=== PATIENT | male | born 1950 | race Caucasian/White ===

== ENCOUNTER 2017-12-24 10:54 | Outpatient (CLI) | payer MEDICARE, OTHER ==
[~2017-12-24] VITALS: Ht 182.9 cm; Wt 131.8 kg
--- NOTE | ~2017-12-24 | HEMODYNAMI ---
PATIENT:CHAS RICHARD MEDICAL RECORD: [id number] : 46 LOCATION:[facility]ARY ADMISSION DATE: 12/24/17 Generatedon:12/24/201713:21 Patient name: CHAS RICHARD Patient #: [id number] SSN: : 1950 Date of study: 12/24/2017 Page: Of Hemodynamic Procedure Report Patient Data Patient Demographics Procedure consent was obtained First Name: CHAS Gender: Male Last Name: JOSE MANUEL : 1950 Middle Initial: R Age: 67 year(s) Patient #: [id number] Race: Unknown Additional ID: [id number] Contact details Address: [place] [address] State: [place] City: [place] Zip code: [address] Admission Admission Data Admission Date: 12/24/2017 Admission Time: 10:54 Admit Source: Other Lab Results Lab Result Date: 12/24/2017 Lab Result Time: 11:33 Biochemistry Name Units Result Min Max BUN mg/dl 16 --(---*)-- 7 18 Creatinine mg/dl 1.3 --(---*)-- 0.6 1.3 CBC Name Units Result Min Max Hematocrit % 44.9 --(*---)-- 42 54 Hemoglobin g/dl 15.6 --(--*-)-- 13.5 17.5 Procedure Procedure Types Cath Procedure Diagnostic Procedure Cardioversion External Procedure Description Procedure Date Procedure Date: 12/24/2017 Procedure Start Time: 13:05 Procedure End Time: 13:20 Procedure Staff Name Function Thaddeus Warner MD Performing Physician Syed Watkins RT Monitor Sanya Carmichael RN Nurse Yue Rowell RT Monitor Jerry Estrella CRNA Additional personnel Procedure Data Procedure Complications No complications Procedure Medications Medication Administration Route Dosage Oxygen etCO2 Nasal cannula 6 l/min Refer to Anesthesia Notes for Sedation Medications Hemodynamics Rest Heart Rate: 99 (bpm) Snapshots Pre Cath Intra NCS Post Cath Vital Signs Time Heart Resp SPO2 etCO2 NIBP (mmHg) Rhythm Pain Sedation Rate (ipm) (%) (mmHg) Status Level (bpm) 12:58:09 100 16 95 0 146/90(115) NSR 0 (11) 10(A) , No pain 13:02:37 100 16 99 36.1 125/90(102) NSR 0 (11) 10(A) , No pain 13:06:57 98 17 99 39.8 128/96(111) NSR 0 (11) 9(A) , No pain 13:11:28 62 16 94 12.8 111/69(86) NSR 0 (11) 9(A) , No pain 13:16:27 62 14 95 40.6 Measuring NSR 0 (11) 9(A) , No pain 13:16:37 63 14 96 34.6 110/66(85) NSR 0 (11) 9(A) , No pain 13:20:04 62 16 96 35.4 110/69(88) NSR 0 (11) 9(A) , No pain Medications Time Medication Route Dose Verified Delivered Reason Notes Effective ness by by 13:00:54 Oxygen etCO2 6 Thaddeus Segundo Per Nasal l/min St Catrachito Carmichael RN physician cannula 13:01:21 Refer to Thaddeus Segundo Per Anesthesia St Catrachito Carmichael RN physician Notes for MD Sedation Medications Procedure Log Time Note 12:36:17 Informed consent obtained and on chart 12:36:54 Admit Source: Other 12:36:56 Diagnostic Cath status Elective 12:36:57 Time tracking: Regular hours 12:37:00 Plan of Care:Hemodynamics will remain stable., Cardiac rhythm will remain stable., Comfort level will be maintained., Respiratory function will remain adequate., Patient/ family verbilizes understanding of procedure., Procedure tolerated without complication., Recovers from procedure without complications.. 12:37:35 H&P Date Dictated: 12/22/2017 Within 30 days and on chart., H&P Addendum completed by physician on day of procedure. (MUST COMPLETE FOR ALL OUTPATIENTS). 12:39:28 Lab Result : BUN 16 mg/dl 12:39:28 Lab Result : Hemoglobin 15.6 g/dl 12:39:28 Lab Result : Creatinine 1.3 mg/dl 12:39:28 Lab Result : Hematocrit 44.9 % 12:40:57 Syed Watkins RT(R) sent for patient. Start room use. 12:55:55 Patient received from Pre/Post Procedure Room to CCL 3 Alert and oriented. Tansferred to table in Supine position. 12:55:56 Warm blankets applied, and yamel hugger turned on for patient comfort. 12:55:57 Correct patient and procedure confirmed by team. 12:55:57 ECG and BP/O2 sat monitors applied to patient. 12:55:59 Full Disclosure recording started 12:56:50 Vital chart was started 12:56:54 Rhythm: atrial fibrillation 12:56:58 Pre-procedure instructions explained to patient. 12:56:58 Pre-op teaching completed and patient verbalized understanding. 12:57:00 Family in patients room. 12:57:02 Patient NPO since Midnight. 12:57:23 Quick Combo opened to sterile field. 12:58:09 Is patient on blood thinner?Yes 12:58:11 ACC The patient was administered the following blood thiners within the last 24 hours: Coumadin 12:58:23 Patient diabetic? No. 12:58:26 Previous problem with sedation/anesthesia? No ? 12:58:50 Snore? Yes 12:58:50 Sleep apnea? No 12:58:51 Deviated septum? No 12:58:53 Opens mouth fully? Yes 12:58:54 Sticks out tongue? Yes 12:58:56 Airway obstruction? No ? 12:59:01 Dentures? Yes IN TIGHT 12:59:07 Patient pain scale 0/10 ?. 12:59:14 IV patent on arrival in left forearm with 0.9% NaCl at KVO. 12:59:18 Lab results completed and on chart. 12:59:25 Alarms reviewed by RToni Mcqueen. 12:59:44 Quick combo pads placed on patients chest and back. 13:00:12 Jerry Estrella CRNA present and monitoring patient for TIVA. 13:00:54 Oxygen 6 l/min etCO2 Nasal cannula was administered by Sanya Carmichael RN; Per physician; 13:01:21 Refer to Anesthesia Notes for Sedation Medications was administered by Sanya Carmichael RN; Per physician; 13:04:38 Final Timeout: patient, procedure, and site verified with staff and physician. All members of the team are in agreement. 13:04:44 Physical assessment completed. ASA score P 2 - A patient with mild systemic disease as per Thaddeus Warner MD. 13:04:47 Sedation plan: TIVA Medication:Propofol 13:05:56 Procedure started. 13:06:37 Baseline sample Acquired. 13:07:38 Defibrillator synced and charged to 200 Joules. 13:07:48 Shock delivered. 13:08:01 Patient cardioverted to sinus bradycardia. 13:08:19 Procedure ended.(Physican Out) 13:09:19 Post-procedure physical assessment completed. ASA score P 2 - A patient with mild systemic disease as per Thaddeus Warner MD. 13:09:24 Post procedure rhythm: sinus bradycardia 13:09:26 Post procedure instruction explained to patient.Patient verbalizes understanding. 13:09:27 Patient needs reinforcement of post procedure teaching. 13:09:40 Procedure Complication : No complications 13:09:42 See physician's report for complete and final results. 13:10:14 Procedure and supply charges have been captured, reviewed, submitted and are correct. 13:20:12 Report given to Pre/Post Procedure Room. 13:20:28 Vital chart was stopped 13:20:32 Patient transfered to Pre/Post Procedure Room with Stretcher. 13:20:34 Procedure ended. 13:20:34 Full Disclosure recording stopped 13:20:39 End room use (Document Last) Device Usage Item Manufacture Quantity Catalog Hospital Part Current Minimal Lot# / Name Number Charge Number Stock Shayan Grissom sc# Code [facility] 1 [id number] Combo Signature Audit [place] Stage Time Signature Unsigned Intra-Procedure 12/24/2017 Yue 1:20:56 PM Counts RT(R) Signatures Monitor : Syed Watkins RT Signature : Date : Time : Monitor : Yue Signature : Counts RT Date : Time : [facility] [address] [place] [address]
--- NOTE | ~2017-12-24 | OP ---
PATIENT NAME: CHAS RICHARD MEDICAL RECORD: [id number] :46 LOCATION:D.CAT ADMISSION DATE: SURGEON: NUBIA SILVESTRE MD DATE OF OPERATION: 12/24/2017 PROCEDURE: Cardioversion. DESCRIPTION OF PROCEDURE: General sedation via TIVA anesthesia. Single shock was successful in restoring atrial flutter, normal sinus rhythm. IMPRESSION: Successful cardioversion. ESTIMATED BLOOD LOSS: Minimal. DISPOSITION: To the floor stable. COMPLICATIONS: None. TRANSINT:[id number] Voice Confirmation ID: [id number] DOCUMENT ID: [id number] NUBIA SILVESTRE MD at 1155 CC: [id number] DICTATION DATE: 12/24/17 1310 CATTLE DRIVER: 12/24/17 1326 DEP CLI 12/24/17 [id number] [place] [address]
[2017-12-24] MEDS ORDERED: BYSTOLIC20 MG PO (11:12)
[2017-12-24] MEDS ORDERED: FLOMAX0.4 MG PO (11:13)
[2017-12-24] MEDS ORDERED: CARTIA XT180 MG PO (11:14)
[2017-12-24] MEDS ORDERED: FLECAINIDE ACET50 MG PO (11:14)
[2017-12-24] MEDS ORDERED: XANAX0.5 MG PO (11:15)
[2017-12-24] MEDS ORDERED: ULORIC40 MG PO (11:15)
[2017-12-24] MEDS ORDERED: COUMADIN2 MG PO (11:16)
[2017-12-24] MEDS ORDERED: ALPHAGAN 0.2%5 ML EACH EYE (11:16)
[2017-12-24 11:28] VITALS: BP 145/96; Ht 182.9 cm; Wt 131.8 kg
[2017-12-24 11:44] LABS: BASOPHILS 0.2 % (0-2); HEMATOCRIT 44.9 % (42.0-54.0); HEMOGLOBIN 15.6 g/dL (13.5-17.5); IMMATURE GRANULOCYTES 0.2 % (0-5); LYMPHOCYTES 28.5 % (15-50); MCH 29.5 pg (26.0-34.0); MCHC 34.7 g/dL (31.0-37.0); MCV 84.9 fL (80.0-100.0); MEAN PLATELET VOLUME 10.8 fL (7.4-10.4); MONOCYTES 9.4 % (2-11); NEUTROPHILS 59.7 % (40-80); PLATELET COUNT 145 10x3/uL (130-400); RBC 5.29 10x6/uL (4.20-6.10); RDW 13.2 % (11.5-14.5); WBC 4.5 10x3/uL (4.8-10.8)
[2017-12-24 11:54] LABS: ANION GAP 13.3 mmol/L (8-16); CALCIUM 8.9 mg/dL (8.5-10.1); CARBON DIOXIDE 25.3 mmol/L (21.0-32.0); CREATININE - SERUM 1.3 mg/dL (0.6-1.3); INR 2.26 (0.85-1.17); POTASSIUM - SERUM 4.6 mmol/L (3.5-5.1); PROTIME 24.3 SECONDS (11.6-15.0)
== END 2017-12-24 15:00 | disposition home or self-care (01) ==
LOC: D.CATH 10:54
PROVIDERS: Internal Medicine Interventional Cardiology
DX: I48.91 Unspecified atrial fibrillation (principal); Z01.812 Encounter for preprocedural laboratory examination

== ENCOUNTER → 2018-03-16 10:43 | Outpatient (CLI) | payer MEDICARE, OTHER ==
[~2018-03-16] VITALS: Ht 182.9 cm; Wt 134.1 kg
[~2018-03-16 10:43] MED LIST: ALPHAGAN 0.2%5 ML EACH EYE; BYSTOLIC20 MG PO; CARTIA XT180 MG PO; COUMADIN2 MG PO; FLECAINIDE ACET50 MG PO; FLOMAX0.4 MG PO; ULORIC40 MG PO; XANAX0.5 MG PO
[2018-03-16 11:24] VITALS: BP 118/78; Ht 182.9 cm; Wt 134.1 kg
[2018-03-16 11:45] LABS: BASOPHILS 0.2 % (0-2); EOSINOPHILS 2.4 % (0-7); HEMATOCRIT 43.6 % (42.0-54.0); HEMOGLOBIN 15.1 g/dL (13.5-17.5); LYMPHOCYTES 27.7 % (15-50); MCHC 34.6 g/dL (31.0-37.0); MCV 83.8 fL (80.0-100.0); MEAN PLATELET VOLUME 11.4 fL (7.4-10.4); MONOCYTES 13.2 % (2-11); NEUTROPHILS 56.5 % (40-80); PLATELET COUNT 132 10x3/uL (130-400); RDW 13.4 % (11.5-14.5); WBC 4.2 10x3/uL (4.8-10.8)
[2018-03-16 11:57] LABS: ANION GAP 10.7 mmol/L (8-16); CARBON DIOXIDE 26.5 mmol/L (21.0-32.0); CREATININE - SERUM 1.6 mg/dL (0.6-1.3); POTASSIUM - SERUM 4.2 mmol/L (3.5-5.1)
[2018-03-16 12:20] LABS: INR 3.56 (0.85-1.17); PROTIME 34.8 SECONDS (11.6-15.0)
== END | disposition home or self-care (01) ==
LOC: D.CATH 10:43
PROVIDERS: Internal Medicine Interventional Cardiology
DX: I48.91 Unspecified atrial fibrillation (principal); Z01.812 Encounter for preprocedural laboratory examination

== ENCOUNTER 2018-10-20 11:25 | Outpatient (CLI) | payer MEDICARE, OTHER ==
[~2018-10-20] VITALS: Ht 182.9 cm; Wt 131.8 kg
--- NOTE | ~2018-10-20 | HEMODYNAMI ---
PATIENT:CHAS RICHARD MEDICAL RECORD: [id number] : 46 LOCATION:[facility] ADMISSION DATE: 10/20/18 Generatedon:10/20/201813:22 Patient name: CHAS RICHARD Patient #: [id number] SSN: : 1950 Date of study: 10/20/2018 Page: Of Hemodynamic Procedure Report Patient Data Patient Demographics Procedure consent was obtained First Name: CHAS Gender: Male Last Name: JOSE MANUEL : 1950 Middle Initial: R Age: 68 year(s) Patient #: [id number] Race: Unknown Additional ID: [id number] Contact details Address: [address] [place] [address] State: [place] City: [place] Zip code: [address] Past Medical History Allergies Allergen Reaction Date Comments Reported Other allergy 10/20/2018 [place] Admission Admission Data Admission Date: 10/20/2018 Admission Time: 11:25 Height (in.): 70 BSA: 2.45 (m2) Height (cm.): 177.8 BMI: 41.75 (kg/m2) Weight (lbs.): 291 Weight (kg.): 132 Lab Results Lab Result Date: 10/20/2018 Lab Result Time: 0:00 Biochemistry Name Units Result Min Max BUN mg/dl 21 --(----)-* 7 18 Creatinine mg/dl 1.5 --(----)-* 0.6 1.3 CBC Name Units Result Min Max Hemoglobin g/dl 16.1 --(--*-)-- 13.5 17.5 Procedure Procedure Types Cath Procedure Diagnostic Procedure Cardioversion External Procedure Description Procedure Date Procedure Date: 10/20/2018 Procedure Start Time: 13:06 Procedure End Time: 13:16 Procedure Staff Name Function Thaddeus Warner MD Performing Physician Marry Lorenzo RT Monitor Eliseo Saxena RN Nurse Sanya Carmichael RN Digital Advertising Analyst Procedure Data Cath Procedure Estimated blood loss: 0 ml Procedure Complications No complications Procedure Medications Medication Administration Route Dosage Oxygen etCO2 Nasal cannula 4 l/min Refer to Anesthesia Notes for Sedation Medications Hemodynamics Rest BSA: 2.45 (m2) HGB: 16.1 (g/dl) O2 Consumption: Estimated: 301.54 (ml/min) O2 Consumption indexed: Estimated:123.08 (ml/min/m) Heart Rate: 89 (bpm) Snapshots Pre Cath Intra NCS Post Cath Vital Signs Time Heart Resp SPO2 etCO2 NIBP (mmHg) Rhythm Pain Sedation Rate (ipm) (%) (mmHg) Status Level (bpm) 13:02:23 82 10 94 13.6 123/81(91) NSR 0 (11) 10(A) , No pain 13:07:40 110 20 94 13.6 115/80(102) NSR 0 (11) 9(A) , No pain 13:11:56 67 16 95 0 110/70(87) NSR 0 (11) 9(A) , No pain 13:16:08 68 12 93 0 114/78(88) NSR 0 (11) 10(A) , No pain Medications Time Medication Route Dose Verified Delivered Reason Notes Effective ness by by 13:04:05 Oxygen etCO2 4 Thaddeus Gomes used for Nasal l/min St Catrachito Saxena RN procedure cannula 13:04:10 Refer to Thaddeus Gomes Anesthesia St Catrachito Saxena RN Notes for MD Sedation Medications Procedure Log Time Note 12:38:19 Patient Height : 70 inches 12:38:28 Patient Weight : 291 lbs 12:38:49 Patient allergic to Other allergyLESCOL 12:41:14 Lab Result : Creatinine 1.5 mg/dl 12:41:14 Lab Result : BUN 21 mg/dl 12:41:14 Lab Result : Hemoglobin 16.1 g/dl 12:48:48 Marry Lorenzo RT(R) sent for patient. Start room use. 12:53:41 H&P Date Dictated: 10/18/2018 Within 30 days and on chart., H&P Addendum completed by physician on day of procedure. (MUST COMPLETE FOR ALL OUTPATIENTS). 12:54:50 Patient arrived from Pre/Post Procedure Room to CCL 3. Patient remains on bed/stretcher for procedure. 12:54:52 Warm blankets applied, and yamel hugger turned on for patient comfort. 12:54:53 Correct patient and procedure confirmed by team. 12:54:54 Signed procedure consent form obtained from patient. 12:54:54 ECG and BP/O2 sat monitors applied to patient. 13:01:13 Vital chart was started 13:01:14 Baseline sample Acquired. 13:01:20 Rhythm: atrial fibrillation 13:01:21 Full Disclosure recording started 13::22 Pre-procedure instructions explained to patient. 13::22 Pre-op teaching completed and patient verbalized understanding. 13:01:24 Family in patients room. 13::27 Patient NPO since Midnight. 13:01:28 Is patient on blood thinner?Yes 13:01:31 ACC The patient was administered the following blood thiners within the last 24 hours: Coumadin 13:01:32 Patient diabetic? No. 13:01:37 Previous problem with sedation/anesthesia? No ? 13:01:38 Snore? Yes 13:01:39 Sleep apnea? Yes 13:01:42 Deviated septum? No 13:01:43 Opens mouth fully? Yes 13:01:43 Sticks out tongue? Yes 13:02:00 Airway obstruction? No DOES HAVE TROUBLE BREATHING 13:02:03 Dentures? No ? 13:02:10 Patient pain scale 0/10 ?. 13:02:14 IV patent on arrival in left hand with 0.9% NaCl at [facility]. 13:02:17 Lab results completed and on chart. 13:02:25 Alarms reviewed by R. N. 13:02:25 Sharps counted by scrub and verified by R.N. 13:04:05 Oxygen 4 l/min etCO2 Nasal cannula was administered by Eliseo Saxena RN; used for procedure; 13:04:10 Refer to Anesthesia Notes for Sedation Medications was administered by Eliseo Saxena RN; ; 13:06:17 --------ALL STOP TIME OUT------ 13:06:17 Final Timeout: patient, procedure, and site verified with staff and physician. All members of the team are in agreement. 13:06:23 Physical assessment completed. ASA score P 3 - A patient with severe systemic disease as per Thaddeus Warner MD. 13:06:27 Sedation plan: TIVA Medication:Propofol 13:07:06 CELSA SUNG PRESENT AND MONITORING PATIENT FOR TIVA 13:07:11 Procedure started. 13:08:02 Quick Combo opened to sterile field. 13:08:12 Quick combo pads placed on patients chest and back. 13:10:12 Defibrillator synced and charged to 200 Joules. 13:10:20 Shock delivered. 13:10:36 Patient cardioverted to sinus rhythm . 13:10:49 Procedure ended.(Physican Out) 13:12:26 Post-procedure physical assessment completed. ASA score P 3 - A patient with severe systemic disease as per Thaddeus Warner MD. 13:12:29 Post procedure rhythm: sinus rhythm 13:12:31 Estimated blood loss: 0 ml 13:12:33 Post procedure instruction explained to patient.Patient verbalizes understanding. 13:12:33 Patient needs reinforcement of post procedure teaching. 13:12:50 Procedure and supply charges have been captured, reviewed, submitted and are correct. 13:12:52 Procedure Complication : No complications 13:16:47 Vital chart was stopped 13:16:47 See physician's report for complete and final results. 13:16:49 Report given to Pre/Post Procedure Room. 13:16:51 Patient transfered to Pre/Post Procedure Room with Bed. 13:16:53 Procedure ended. 13:16:53 Full Disclosure recording stopped 13:16:56 End room use (Document Last) Device Usage Item Manufacture Quantity Catalog Hospital Part Current Minimal Lot# / Name Number Charge Number Stock Stock Praveena pa# Code [employer] 1 [id number] Combo Signature Audit [place] Stage Time Signature Unsigned Intra-Procedure 10/20/2018 Marry Lorenzo 1:22:53 PM RT(R) Signatures Monitor : Marry Lorenzo Signature : RT Date : Time : [id number] [place] [address]
[2018-10-20 11:57] VITALS: BP 107/67; Ht 182.9 cm; Wt 131.8 kg
[2018-10-20 12:07] LABS: BASOPHILS 0.2 % (0-2); EOSINOPHILS 2.6 % (0-7); HEMATOCRIT 46.6 % (42.0-54.0); HEMOGLOBIN 16.1 g/dL (13.5-17.5); IMMATURE GRANULOCYTES 0.2 % (0-5); LYMPHOCYTES 26.7 % (15-50); MCHC 34.5 g/dL (31.0-37.0); MCV 83.8 fL (80.0-100.0); MEAN PLATELET VOLUME 10.7 fL (7.4-10.4); MONOCYTES 8.7 % (2-11); NEUTROPHILS 61.6 % (40-80); RBC 5.56 10x6/uL (4.20-6.10); RDW 13.6 % (11.5-14.5); WBC 5.4 10x3/uL (4.8-10.8)
[2018-10-20 12:08] LABS: PLATELET COUNT 166 10x3/uL (130-400)
[2018-10-20 12:28] LABS: ANION GAP 12.4 mmol/L (8-16); CARBON DIOXIDE 23.3 mmol/L (21.0-32.0); CREATININE - SERUM 1.5 mg/dL (0.6-1.3); POTASSIUM - SERUM 4.7 mmol/L (3.5-5.1)
[2018-10-20 12:38] LABS: INR 2.53 (0.85-1.17); PROTIME 26.5 SECONDS (11.6-15.0)
--- NOTE | 2018-10-20 13:30 | NUR ---
PT RECEIVED VIA STRETCHER FROM CLOTH WINDER POST PROCEDURE FOR RECOVERY. PT AWAKE AND ALERT, DENIES PAIN. HR NSR RATE 63, BP 96/62, O2 96% ON ROOM AIR. CALL LIGHT IN REACH, AT BEDSIDE. COLA GIVEN TO DRINK PER REQUEST, DENIES ANY OTHER NEEDS
--- NOTE | 2018-10-20 13:48 | NUR ---
HR NSR RATE 63, BP 105/67. DENIES PAIN OR NEEDS.
--- NOTE | 2018-10-20 14:15 | NUR ---
PT DOING WELL, HR REMAINS NSR. DISCHARGE TEACHING COMPLETED W PT AND , BOTH VERBALIZED UNDERSTANDING. IV REMOVED W CATH INTACT, MONITORS REMOVED AND PT UP TO DRESS FOR DISCHARGE
--- NOTE | 2018-10-20 14:35 | NUR ---
PT DISCHARGED VIA WC TO PRIVATE VEHICLE.
--- NOTE | 2018-10-23 12:55 | OP ---
PATIENT NAME: CHAS RICHARD MEDICAL RECORD: [id number] :46 LOCATION:D.CAT ADMISSION DATE: SURGEON: NUBIA SILVESTRE MD DATE OF OPERATION: 10/20/2018 PROCEDURE: Cardioversion. SUMMARY OF PROCEDURE: After general sedation via TIVA via anesthesia, the single synchronized shock was successful in restoring atrial fibrillation to normal sinus rhythm. IMPRESSION: Successful cardioversion, single synchronized shock at 300 joules. COMPLICATIONS: None. ESTIMATED BLOOD LOSS: Minimal. DISPOSITION: To the floor, stable. TRANSINT:[id number] Voice Confirmation ID: [id number] DOCUMENT ID: [id number] NUBIA SILVESTRE MD at 1255 CC: [id number] DICTATION DATE: 10/20/18 1315 INTERNET ARCHITECT: 10/20/18 1350 DEP CLI 10/20/18 [address] [place] [address]
== END 2018-10-20 14:35 | disposition home or self-care (01) ==
LOC: D.CATH 11:25
PROVIDERS: Internal Medicine Interventional Cardiology
DX: I48.91 Unspecified atrial fibrillation (principal); Z79.01 Long term (current) use of anticoagulants; Z79.899 Other long term (current) drug therapy; Z88.8 Allergy status to other drugs, medicaments and biological substances; F17.210 Nicotine dependence, cigarettes, uncomplicated; E78.00 Pure hypercholesterolemia, unspecified; I10 Essential (primary) hypertension; E66.9 Obesity, unspecified; F32.9 Major depressive disorder, single episode, unspecified; Z68.39 Body mass index [BMI] 39.0-39.9, adult; Z01.812 Encounter for preprocedural laboratory examination

== ENCOUNTER 2019-03-08 11:03 | Outpatient (CLI) | payer MEDICARE, OTHER ==
[~2019-03-08] VITALS: Ht 182.9 cm; Wt 131.8 kg
--- NOTE | ~2019-03-08 | HEMODYNAMI ---
PATIENT:CHAS RICHARD MEDICAL RECORD: [id number] : 46 LOCATION:[facility] ADMISSION DATE: 03/08/19 Generatedon:03/08/201913:29 Patient name: CHAS RICHARD Patient #: [id number] SSN: : 1950 Date of study: 03/08/2019 Page: Of Hemodynamic Procedure Report Patient Data Patient Demographics Procedure consent was obtained First Name: CHAS Gender: Male Last Name: JOSE MANUEL : 1950 Middle Initial: R Age: 68 year(s) Patient #: [id number] Race: Unknown Additional ID: [id number] Contact details Address: [address] [address] State: [place] City: [place] Zip code: [address] Past Medical History Allergies Allergen Reaction Date Comments Reported Other allergy 10/20/2018 [facility] Admission Admission Data Admission Date: 03/08/2019 Admission Time: 11:03 Procedure Procedure Types Cath Procedure Diagnostic Procedure Cardioversion External Procedure Description Procedure Date Procedure Date: 03/08/2019 Procedure Start Time: 13:18 Procedure End Time: 13:29 Procedure Staff Name Function Thaddeus Warner MD Performing Physician Joyce Childers RT Monitor Keshav Finley RT Scrub Antonietta Mullen RN Nurse Jerry Corea CRNA Additional personnel Procedure Data Cath Procedure Fluoroscopy Diagnostic fluoroscopy Total fluoroscopy Time: 0 time: 0 min min Diagnostic fluoroscopy Total fluoroscopy dose: 0 dose: 0 mGy mGy Contrast Material Contrast Material Type Amount (ml) Isovue 370 0 Estimated blood loss: 10 ml Procedure Complications No complications Procedure Medications Medication Administration Route Dosage 0.9% NaCl I.V. 100 ml/hr Oxygen etCO2 Nasal cannula 2 l/min Refer to Anesthesia Notes for Sedation Medications Hemodynamics Rest Heart Rate: 114 (bpm) Snapshots Pre Cath Intra NCS Post Cath Vital Signs Time Heart Resp SPO2 etCO2 NIBP (mmHg) Rhythm Pain Sedation Rate (ipm) (%) (mmHg) Status Level (bpm) 13:09:34 113 18 99 41.9 143/98(119) A-Flutter 0 (11) 10(A) , No pain 13:13:52 113 12 99 34.4 129/113(127) A-Flutter 0 (11) 10(A) , No pain 13:18:08 113 9 93 40.4 140/105(132) A-Flutter 0 (11) 10(A) , No pain 13:22:37 55 9 97 41.1 126/83(103) A-Flutter 0 (11) 10(A) , No pain 13:27:03 54 10 98 40.4 124/74(101) A-Flutter 0 (11) 10(A) , No pain Medications Time Medication Route Dose Verified Delivered Reason Notes Effective ness by by 13:10:53 0.9% NaCl I.V. 100 Thaddeus Mane used for ml/hr [facility] procedure MD BENNETT 13:10:59 Oxygen etCO2 2 Thaddeus Rowleya used for Nasal l/min [facility] procedure cannula MD BENNETT 13:11:03 Refer to Thaddeus Mane Anesthesia [facility] Notes for MD BENNETT Sedation Medications Procedure Log Time Note 12:50:51 Keshav Finley RT(R) sent for patient. Start room use. 13:04:52 Time tracking: Regular hours (M-F 7:00 - 5:00) 13:04:56 Plan of Care:Hemodynamics will remain stable., Cardiac rhythm will remain stable., Comfort level will be maintained., Respiratory function will remain adequate., Patient/ family verbilizes understanding of procedure., Procedure tolerated without complication., Recovers from procedure without complications.. 13:05:24 Patient received from Pre/Post Procedure Room to [facility] 2 Alert and oriented. Tansferred to table in Supine position. 13:05:25 Warm blankets applied, and yamel hugger turned on for patient comfort. 13:05:26 Correct patient and procedure confirmed by team. 13:05:27 Signed procedure consent form obtained from patient. 13:05:28 ECG and BP/O2 sat monitors applied to patient. 13:07:08 Rhythm: atrial fibrillation 13:07:09 Full Disclosure recording started 13:07:17 H&P Date Dictated: 02/24/2019 Within 30 days and on chart., H&P Addendum completed by physician on day of procedure. (MUST COMPLETE FOR ALL OUTPATIENTS). 13:07:18 Pre-procedure instructions explained to patient. 13:07:18 Pre-op teaching completed and patient verbalized understanding. 13:07:20 Family in patients room. 13:07:21 Patient NPO since Midnight. 13:07:23 Is the patient allergic to Iodine/contrast media? No. 13:07:33 Is patient on blood thinner?Yes 13:07:39 ACC The patient was administered the following blood thiners within the last 24 hours: Coumadin 13:07:42 Patient diabetic? No. 13:07:46 Previous problem with sedation/anesthesia? No ? 13:07:47 Snore? Yes 13:07:48 Sleep apnea? Yes 13:07:49 Deviated septum? No 13:07:50 Opens mouth fully? Yes 13:07:51 Sticks out tongue? Yes 13:07:53 Airway obstruction? No ? 13:07:57 Dentures? Yes IN 13:08:05 Patient pain scale 0/10 ?. 13:08:18 Vital chart was started 13:08:23 Baseline sample Acquired. 13:08:37 IV patent on arrival in right antecubital with 0.9% NaCl at [facility]. 13:08:39 Lab results completed and on chart. 13:08:42 Alarms reviewed by Beatrice Valle 13:08:52 Quick Combo opened to sterile field. 13:09:26 Quick combo pads placed on patients chest and back. 13:10:53 0.9% NaCl 100 ml/hr I.V. was administered by Antonietta Mullen RN; used for procedure; 13:10:59 Oxygen 2 l/min etCO2 Nasal cannula was administered by Antonietta Mullen RN; used for procedure; 13:11:03 Refer to Anesthesia Notes for Sedation Medications was administered by Antonietta Mullen RN; ; 13:12:20 Jerry Corea CRNA present and monitoring patient for TIVA. 13:15:41 --------ALL STOP TIME OUT------ 13:15:42 Final Timeout: patient, procedure, and site verified with staff and physician. All members of the team are in agreement. 13:15:51 Fire Safety Assessment: C--Open oxygen or nitrous oxide is being used., E--There are other possible contributors. 13:16:03 Physical assessment completed. ASA score P 3 - A patient with severe systemic disease as per Thaddeus Warner MD. 13:16:06 Sedation plan: TIVA Medication:Propofol 13:18:15 Procedure started. 13:18:37 Defibrillator synced and charged to 200 Joules. 13:18:41 Shock delivered. 13:19:00 Patient cardioverted to sinus bradycardia. 13:19:03 Procedure ended.(Physican Out) 13:21:03 Fluoroscopy time 00.00 minutes. 13:21:05 Fluoroscopy dose: 0 mGy 13:21:05 Flurop Dose total: 0 13:21:09 Contrast amount:Isovue 370 0ml. 13:21:49 Post Procedure Pulses reassessed and unchanged 13:21:54 Post-procedure physical assessment completed. ASA score P 3 - A patient with severe systemic disease as per Thaddeus Warner MD. 13:22:04 Post procedure rhythm: sinus bradycardia 13:22:06 Estimated blood loss: 10 ml 13:22:08 Post procedure instruction explained to patient.Patient verbalizes understanding. 13:22:08 Patient needs reinforcement of post procedure teaching. 13:22:16 Procedure and supply charges have been captured, reviewed, submitted and are correct. 13:22:18 Procedure Complication : No complications 13:29:16 Vital chart was stopped 13:29:16 See physician's report for complete and final results. 13:29:18 Report given to Pre/Post Procedure Room. 13:29:24 Patient transfered to Pre/Post Procedure Room with Stretcher. 13:29:26 Procedure ended. 13:29:26 Full Disclosure recording stopped 13:29:32 End room use (Document Last) Device Usage Item Manufacture Quantity Catalog Hospital Part Current Minimal Lot# / Name Number Charge Number Stock Stock Praveena al# Code DataCoup 1 [id number] Combo Signature Audit Wasta Stage Time Signature Unsigned Intra-Procedure 03/08/2019 Keshav Finley 1:29:53 PM RT(R) Signatures Monitor : Joyce Childers RT Signature : Date : Time : [facility] [address] [place] [address]
[2019-03-08] MEDS ORDERED: ZYLOPRIM300 MG PO (11:16)
[2019-03-08] MEDS ORDERED: MULTAQ400 MG PO (11:18)
[2019-03-08 11:28] VITALS: BP 120/87; Ht 182.9 cm; Wt 131.8 kg
[2019-03-08 13:08] LABS: BASOPHILS 0.2 % (0-2); EOSINOPHILS 2.4 % (0-7); HEMATOCRIT 42.7 % (42.0-54.0); LYMPHOCYTES 31.6 % (15-50); MCH 29.2 pg (26.0-34.0); MCHC 35.1 g/dL (31.0-37.0); MCV 83.2 fL (80.0-100.0); MEAN PLATELET VOLUME 9.8 fL (7.4-10.4); NEUTROPHILS 56.8 % (40-80); RBC 5.13 10x6/uL (4.20-6.10); RDW 14.1 % (11.5-14.5); WBC 4.7 10x3/uL (4.8-10.8)
[2019-03-08 13:09] LABS: PLATELET COUNT 128 10x3/uL (130-400)
[2019-03-08 13:17] LABS: ANION GAP 9.5 mmol/L (8-16); CALCIUM 9.4 mg/dL (8.5-10.1); CARBON DIOXIDE 30.2 mmol/L (21.0-32.0); CREATININE - SERUM 1.4 mg/dL (0.6-1.3); INR 2.46 (0.85-1.17); POTASSIUM - SERUM 4.7 mmol/L (3.5-5.1)
--- NOTE | 2019-03-08 13:42 | NUR ---
DR SILVESTRE HAS ROUNDED ON PT. PT IS ALERT, DENIES ANY C/O PAIN OR NAUSEA. SINUS EMMIE AT 56, BP IS 115/86. RESP WTIH EASE, AT BEDSIDE. REQUESTS PO FLUIDS AND THIS SERVED. SANDWICH ALSO AT BEDSIDE. SLIGHT REDNESS TO CARDIOVERSION PAD SITES. CALL LIGHT IN REACH.
--- NOTE | 2019-03-08 13:58 | NUR ---
PT HAS TOLERATED SANDWICH AND PO FLUIDS WITH NO C/O NAUSEA. SINUS EMMIE AT 56, DENIES ANY C/O CHEST PAIN. RESP WITH EASE ON ROOM AIR. AT BEDSIDE, VISTING WITH PT. PT DENIES NEEDS AT THIS TIME, CALL LIGHT IS IN REACH.
--- NOTE | 2019-03-08 14:32 | NUR ---
1415 PT ALERT, DENIES ANY C/O OR NEEDS AT THIS TIME. 1427 IV DC'D WITH CATH INTACT. DC INSTRUCTIONS REVIEWED WITH PT AND WHO VERBALIZE UNDERSTANDING. PT DENIES ANY C/O PAIN OR NAUSEA. SINUS EMMIE AT 57. 1430 PT DRESSING FOR DC TO HOME WITH ASSIST.
--- NOTE | 2019-03-08 14:45 | NUR ---
1737 PT HAS DRESSED FOR DC TO HOME. IS ALERT AND DENIES ANY C/O. PT ESCORTED TO PRIVATE AUTO VIA WC BY NURSE WITH DRIVING HIM HOME.
--- NOTE | 2019-03-08 15:03 | OP ---
PATIENT NAME: CHAS RICHARD MEDICAL RECORD: [id number] :46 LOCATION:D.CAT ADMISSION DATE: SURGEON: NUBIA SILVESTRE MD DATE OF OPERATION: 03/08/2019 PROCEDURE: Cardioversion. INDICATION: Atrial flutter 2:1. DESCRIPTION OF PROCEDURE: After sedation via TIVA via anesthesia, a single synchronized shock at 200 joules was successful in restoring atrial fibrillation to normal sinus rhythm. IMPRESSION: Successful cardioversion. COMPLICATIONS: None. DISPOSITION: To the floor, stable. TRANSINT:[id number] Voice Confirmation ID: [id number] DOCUMENT ID: [id number] NUBIA SILVESTRE MD at 1503 CC: [id number] DICTATION DATE: 03/08/19 1323 CARTON GLUING MACHINE OPERATOR: 03/08/19 1402 DEP CLI 03/08/19 [id number] [place] [address]
== END 2019-03-08 14:37 | disposition home or self-care (01) ==
LOC: D.CATH 11:03
PROVIDERS: ATTEND Internal Medicine Interventional Cardiology
DX: I48.91 Unspecified atrial fibrillation (principal); Z01.812 Encounter for preprocedural laboratory examination

== ENCOUNTER 2019-03-22 12:08 | Emergency (ER) | payer MEDICARE, OTHER ==
[~2019-03-22] VITALS: Ht 182.9 cm; Wt 3.8 kg
[~2019-03-22 12:08] MED LIST changes: +MULTAQ400 MG PO; +ZYLOPRIM300 MG PO
[2019-03-22 12:28] LABS: BASOPHILS 0.2 % (0-2); EOSINOPHILS 2.1 % (0-7); HEMATOCRIT 42.1 % (42.0-54.0); HEMOGLOBIN 14.8 g/dL (13.5-17.5); LYMPHOCYTES 30.3 % (15-50); MCH 29.2 pg (26.0-34.0); MCHC 35.2 g/dL (31.0-37.0); MEAN PLATELET VOLUME 10.2 fL (7.4-10.4); MONOCYTES 11.2 % (2-11); NEUTROPHILS 56.2 % (40-80); PLATELET COUNT 133 10x3/uL (130-400); RBC 5.07 10x6/uL (4.20-6.10); RDW 14.2 % (11.5-14.5); WBC 4.7 10x3/uL (4.8-10.8)
[2019-03-22 12:29] VITALS: Ht 182.9 cm; Wt 3.8 kg
[2019-03-22 12:44] LABS: INR 2.65 (0.85-1.17); PROTIME 27.5 SECONDS (11.6-15.0)
[2019-03-22 12:45] LABS: ALBUMIN 3.8 g/dL (3.4-5.0); ALKALINE PHOSPHATASE 71 U/L (46-116); ALT (SGPT) 35 U/L (10-68); APTT 42.8 SECONDS (22.8-39.4); BILIRUBIN - TOTAL 0.36 mg/dL (0.2-1.3); CALC OSMOLALITY 281 mosm/kg (275-300); CALCIUM 9.2 mg/dL (8.5-10.1); CARBON DIOXIDE 28.1 mmol/L (21.0-32.0); CHLORIDE - SERUM 105 mmol/L (98-107); CREATININE - SERUM 1.4 mg/dL (0.6-1.3); GLUCOSE 132 mg/dL (74-106); POTASSIUM - SERUM 4.1 mmol/L (3.5-5.1); PROTEIN - SERUM 7.4 g/dL (6.4-8.2); SODIUM 140 mmol/L (136-145); UREA NITROGEN 16 mg/dL (7-18); eGFR NON AFRICAN AMERICAN 53 mL/min (90-120)
[2019-03-22 12:57] LABS: CKMB 0.5 U/L (0.0-3.6); CREATINE KINASE 85 UL (21-232); THYROID STIMULATING HORMONE 3.72 uIU/mL (0.36-3.74)
[2019-03-22 12:58] LABS: TROPONIN-I < 0.017 ng/mL (0.000-0.060)
[2019-03-22 21:22] VITALS: BP 159/75
== END 2019-03-22 21:24 | disposition other institution (70) ==
LOC: D.ER 12:08
PROVIDERS: Family Medicine
DX: G81.91 Hemiplegia, unspecified affecting right dominant side (principal)

== ENCOUNTER → 2019-04-20 08:33 | Outpatient (CLI) | payer MEDICARE, OTHER ==
--- NOTE | 2019-04-26 09:53 | ST ---
PATIENT:CHAS RICHARD MEDICAL RECORD: [id number] SEX: M LOCATION:[facility] ORDER #: ADMISSION DATE: 04/20/19 AGE OF PATIENT: 68 REFERRING PHYSICIAN: INTERPRETING PHYSICIAN: SHIRA VALDEZ MD DATE OF SERVICE: 04/20/2019 PROCEDURE: Nuclear stress test. INDICATIONS: Angina, abnormal ECG, hypertension, and hyperlipidemia. He was exercised on standard Lexiscan protocol with 33 mCi of sestamibi injected at peak stress, 11 mCi used previously for rest images. FINDINGS: Gated SPECT reveals preserved ejection fraction at 54% with decreased thickening and brightening throughout the inferior segments. SPECT imaging: Cardiolite was used as myocardial perfusion agent. There is a fixed perfusion defect inferiorly and apically. This includes the basal, mid, apical, inferior segments as well as the apex itself. There is no evidence of reversibility. The remaining segments are with homogeneous uptake at rest and stress. OVERALL IMPRESSION: This is a minimally abnormal nuclear stress test only showing a fixed perfusion defect inferiorly suggestive of previous inferior myocardial infarction, no ongoing ischemic burden, and ejection fraction preserved at 54%. Continue medical management of the coronary artery disease and cardiac risk factors. TRANSINT:[id number] Voice Confirmation ID: [id number] DOCUMENT ID: [id number] SHIRA VALDEZ MD at 0953 CC: EVELYN HUTCHISON [id number] DICTATION DATE: 04/22/19 1331 CARE DIRECTOR RN: 04/23/19 0104 DEP CLI 04/20/19 [id number] [place] [address]
== END | disposition home or self-care (01) ==
LOC: D.HCCARDIO 08:33
PROVIDERS: ATTEND Internal Medicine Interventional Cardiology
DX: I48.91 Unspecified atrial fibrillation (principal)